=== PATIENT | female | born 1965 | race Caucasian/White ===

== ENCOUNTER 2020-11-14 21:25 | Inpatient (IN) | payer BC, SELFPAY ==
[2020-11-14 22:10] LABS: Absolute Lymphocytes (CBC) 1.4 K/uL (0.7-4.9); Basophils % 0.6 % (0-1.3); Hematocrit 34.9 % (36.0-45.0); Lymphocytes % 14.8 % (15.3-44.8); MPV 7.5 fL (7.6-11.3); Protime INR 1.12; RBC Red Blood Cell Count 3.23 M/uL (3.86-4.86)
[2020-11-14] MEDS ORDERED: ACETAMINOPHEN 325 MG TABLET ONE (22:23)
[2020-11-14] MEDS ORDERED: NA CHLORIDE 0.9% 1,000 ML ONE (22:23)
[2020-11-14 22:36] LABS: ALT/SGPT 42 U/L (12-78); Albumin 3.8 g/dL (3.4-5.0); Alkaline Phosphatase 184 U/L (45-117); BUN Blood Urea Nitrogen 8 mg/dL (7-18); Bicarbonate 20 mmol/L (21-32); Bilirubin Direct 0.2 mg/dL (0-0.2); Bilirubin Total 0.8 mg/dL (0.2-1.0); Glucose Level 166 mg/dL (74-106); NT PRO-BNP 351 pg/mL (<125); Protein, Total 8.7 g/dL (6.4-8.2); Sodium Level 132 mmol/L (136-145); Troponin (Emerg Dept Use Only) < 0.02 ng/mL (0.0-0.045)
[2020-11-14 22:39] LABS: AST/SGOT 128 U/L (15-37); Magnesium 1.6 mg/dL (1.8-2.4); Potassium 3.3 mmol/L (3.5-5.1)
[2020-11-14 22:47] LABS: Blood Morphology Comment NOTED (NOT SEEN); Macrocytosis 1+; Platelet Estimate ADEQ; White Blood Cell Scan OK (OK)
[2020-11-14 23:25] LABS: Urine Blood Trace-intact (Negative); Urine Glucose Negative (Negative); Urine Protein Negative (Negative); Urine Specific Gravity 1.015 (1.005-1.030); Urine pH 6.5 (5.0-7.0)
[2020-11-14 23:42] LABS: Barbiturates NEGATIVE (NEGATIVE); Benzodiazepines NEGATIVE (NEGATIVE); Cocaine NEGATIVE (NEGATIVE); METHAMPHETAM NEGATIVE (NEGATIVE); Methadone NEGATIVE (NEGATIVE); Opiates NEGATIVE (NEGATIVE); Phencyclidine NEGATIVE (NEGATIVE); THC Cannibis POSITIVE (NEGATIVE)
--- NOTE | 2020-11-14 23:44 | ER ---
Nurse's Notes [facility] Name: Lindsay Junior Age: 55 yrs Sex: Female : 1965 Arrival Date: 11/14/2020 Time: 21:28 Bed 14 Private MD: Diagnosis: Other seizures;Fever, unspecified;Other specified sepsis Presentation: 11/14 21:35 Chief complaint: Patient states: seizure-like activity lasting 5 minutes. pt a/ox4 at ak2 this time. Coronavirus screen: Client denies travel out of the [place] in the last 14 days. At this time, the client does not indicate any symptoms associated with coronavirus-19. Ebola Screen: Patient negative for fever greater than or equal to 101.5 degrees Fahrenheit, and additional compatible Ebola Virus Disease symptoms Patient denies exposure to infectious person. Patient denies travel to an Ebola-affected area in the 21 days before illness onset. No symptoms or risks identified at this time. Initial Sepsis Screen: Does the patient meet any 2 criteria? No. Patient's initial sepsis screen is negative. Does the patient have a suspected source of infection? No. Patient's initial sepsis screen is negative. Risk Assessment: Do you want to hurt yourself or someone else? Patient reports no desire to harm self or others. Onset of symptoms was November 14, 2020. 21:35 Method Of Arrival: EMS: [facility] ak2 21:35 Acuity: JENNIFER 3 ak2 Triage Assessment: 21:37 General: Appears in no apparent distress. Behavior is calm, cooperative. Pain: Denies ak2 pain. Neuro: No deficits noted. Historical: - Allergies: 21:37 No Known Allergies; ak2 - Immunization history:: Adult Immunizations up to date. - Social history:: Smoking status: unknown. Screenin:37 Abuse screen: Denies threats or abuse. Denies injuries from another. Nutritional ak2 screening: No deficits noted. Tuberculosis screening: No symptoms or risk factors identified. Fall Risk None identified. Assessment: 21:38 General: Appears in no apparent distress. Neuro: No deficits noted. Cardiovascular: No ak2 deficits noted. Respiratory: No deficits noted. 11/15 00:03 Reassessment: Patient and/or family updated on plan of care and expected duration. Pain ak2 level reassessed. 00:34 General: report called to rn. ak2 Vital Signs: 11/14 21:35 BP 147 / 85; Pulse 119; Resp 20; Temp 100.2; Pulse Ox 100% ; Weight 72.57 kg; Height 5 ak2 ft. 8 in. (172.72 cm); 11/15 00:03 BP 136 / 87; Pulse 89; Resp 18; Temp 98.9(O); Pulse Ox 98% on R/A; ak2 11/14 21:35 Body Mass Index 24.33 (72.57 kg, 172.72 cm) ak2 Shabana Coma Score: 11/14 21:37 Eye Response: spontaneous(4). Verbal Response: oriented(5). Motor Response: obeys ak2 commands(6). Total: 15. ED Course: 21:28 Patient arrived in ED. ag3 21:35 Cuba Escalera is Primary Nurse. ak2 21:37 Triage completed. ak2 21:37 Arm band placed on right wrist. ak2 21:37 Patient has correct armband on for positive identification. Bed in low position. Side ak2 rails up X2. Seizure precautions initiated. 21:37 No provider procedures requiring assistance completed. Inserted saline lock: 20 gauge ak2 in right forearm, using aseptic technique. 21:38 Gurjit Mercado MD is Attending Physician. pkl 22:16 CT Head Brain wo Cont In Process Unspecified. EDMS 22:32 XRAY Chest (1 view) In Process Unspecified. EDMS 22:44 Notified ED physician of a critical lab result(s). lactate 5.1. em 23:35 US Abdomen Limited In Process Unspecified. EDMS 23:42 Roddy Lowery is Hospitalizing Provider. pkl 0704 01:04 Gurjit Mercado MD is Hospitalizing Provider. ak2 Administered Medications: 11/14 22:09 Drug: NS 0.9% 1000 ml Route: IV; Rate: 125 ml/hr; Site: right hand; ak2 22:09 Drug: Tylenol 650 mg Route: PO; ak2 23:34 Drug: K-Dur (potassium chloride) 40 mEq Route: PO; ak2 23:35 Drug: Zosyn (piperacillin-tazobactam) 3.375 grams Route: IVPB; Infused Over: 60 mins; ak2 Site: right forearm; 23:42 Drug: Magnesium Sulfate 1 grams Route: IVPB; Infused Over: 1 hrs; Site: right forearm; ak2 Outcome: 23:43 Decision to Hospitalize by Provider. pkl 11/15 01:02 Admitted to Tele ak2 Condition: good 01:05 Decision to Hospitalize by Provider. ak2 01:05 Patient left the ED. ak2 Signatures: Dispatcher [employer] Gurjit Keller MD MD pkArvind Marshall RN RN Rhoda Rankin Cuba Staley ak2 Corrections: (The following items were deleted from the chart) 11/14 23:35 23:34 Zosyn (piperacillin-tazobactam) 3.375 grams IVPB in right femoral over 60 mins ak2ak2 11/15 00:07 00:03 BP 136 / 87; Pulse 89bpm; Resp 18bpm; Pulse Ox 98% RA; ak2 ak2
--- NOTE | 2020-11-14 23:44 | EDPHYS ---
Physician Documentation [facility] Name: Lindsay Junior Age: 55 yrs Sex: Female : 1965 Arrival Date: 11/14/2020 Time: 21:28 Bed 14 Private MD: ED Physician Gurjit Mercado HPI: 11/14 21:58 This 55 yrs old Female presents to ER via EMS with complaints of Seizure. pkl 21:58 The patient presents after having a single isolated seizure, that lasted 5 minute(s). pkl Character of seizure(s): Loss of consciousness: the patient experienced loss of consciousness, brief, Motor activity: generalized, shaking all over. Seizure onset: just prior to arrival. Historical: - Allergies: 21:37 No Known Allergies; ak2 - Immunization history:: Adult Immunizations up to date. - Social history:: Smoking status: unknown. ROS: 21:58 Eyes: Negative for injury, pain, redness, and discharge, ENT: Negative for injury, pkl pain, and discharge, Neck: Negative for injury, pain, and swelling, Cardiovascular: Negative for chest pain, palpitations, and edema. 21:58 Respiratory: Positive for cough, with no reported sputum. 21:58 Abdomen/GI: Negative for abdominal pain, nausea, vomiting, and diarrhea. 21:58 Back: Negative for acute changes. 21:58 : Negative for urinary symptoms. 21:58 MS/extremity: Negative for acute changes. 21:58 Skin: Negative for rash. 21:58 Neuro: Positive for seizure activity. Exam: 21:58 Head/Face: Normocephalic, atraumatic. Eyes: Pupils equal round and reactive to light, pkl extra-ocular motions intact. Lids and lashes normal. Conjunctiva and sclera are non-icteric and not injected. Cornea within normal limits. Periorbital areas with no swelling, redness, or edema. ENT: Nares patent. No nasal discharge, no septal abnormalities noted. Tympanic membranes are normal and external auditory canals are clear. Oropharynx with no redness, swelling, or masses, exudates, or evidence of obstruction, uvula midline. Mucous membranes moist. Neck: Trachea midline, no thyromegaly or masses palpated, and no cervical lymphadenopathy. Supple, full range of motion without nuchal rigidity, or vertebral point tenderness. No Meningismus. Chest/axilla: Normal chest wall appearance and motion. Nontender with no deformity. No lesions are appreciated. Cardiovascular: Regular rate and rhythm with a normal S1 and S2. No gallops, murmurs, or rubs. Normal PMI, no JVD. No pulse deficits. Respiratory: Lungs have equal breath sounds bilaterally, clear to auscultation and percussion. No rales, rhonchi or wheezes noted. No increased work of breathing, no retractions or nasal flaring. Abdomen/GI: Soft, non-tender, with normal bowel sounds. No distension or tympany. No guarding or rebound. No evidence of tenderness throughout. Back: No spinal tenderness. No costovertebral tenderness. Full range of motion. Skin: Warm, dry with normal turgor. Normal color with no rashes, no lesions, and no evidence of cellulitis. MS/ Extremity: Pulses equal, no cyanosis. Neurovascular intact. Full, normal range of motion. Neuro: Awake and alert, GCS 15, oriented to person, place, time, and situation. Cranial nerves II-XII grossly intact. Motor strength 5/5 in all extremities. Sensory grossly intact. Cerebellar exam normal. Normal gait. Vital Signs: 21:35 BP 147 / 85; Pulse 119; Resp 20; Temp 100.2; Pulse Ox 100% ; Weight 72.57 kg; Height 5 ak2 ft. 8 in. (172.72 cm); 11/15 00:03 BP 136 / 87; Pulse 89; Resp 18; Temp 98.9(O); Pulse Ox 98% on R/A; ak2 11/14 21:35 Body Mass Index 24.33 (72.57 kg, 172.72 cm) ak2 Shabana Coma Score: 11/14 21:37 Eye Response: spontaneous(4). Verbal Response: oriented(5). Motor Response: obeys ak2 commands(6). Total: 15. MDM: 21:38 Patient medically screened. pkl 23:41 Data reviewed: vital signs, nurses notes, lab test result(s), EKG, radiologic studies, pkl CT scan, plain films. ED course: Talked to Tom CUELLAR ) Admit to Dr. Lowery. 11/14 21:56 Order name: Basic Metabolic Panel pkl 11/14 21:56 Order name: CBC with Diff pkl 11/14 21:56 Order name: LFT's pk 11/14 21:56 Order name: Magnesium; Complete Time: 22:49 pk 11/14 21:56 Order name: NT PRO-BNP; Complete Time: 22:49 pk 11/14 21:56 Order name: PT-INR; Complete Time: 22:49 pk 11/14 21:56 Order name: Troponin (emerg Dept Use Only); Complete Time: 22:49 pk 11/14 21:56 Order name: UDS; Complete Time: 23:44 pk 11/14 21:56 Order name: Basic Metabolic Panel; Complete Time: 22:49 EDMS 11/14 21:56 Order name: CBC with Automated Diff; Complete Time: 22:49 EDMS 11/14 21:56 Order name: Liver (Hepatic) Function; Complete Time: 22:49 EDMS 11/14 22:02 Order name: Blood Culture Adult (2) [facility] 11/14 22:02 Order name: Lactate; Complete Time: 22:49 pk 11/14 21:56 Order name: XRAY Chest (1 view) [facility] 11/14 21:56 Order name: CT Head Brain wo Cont [facility] 11/14 22:11 Order name: CBC Smear Scan; Complete Time: 22:49 EDMS 11/14 22:57 Order name: US Abdomen Limited [facility] 11/14 23:25 Order name: Urine Dipstick-Ancillary; Complete Time: 23:34 EDMS 11/14 23:34 Order name: ETOH Level [facility] 11/14 23:53 Order name: SARS-COV-[address] [facility] 11/15 00:05 Order name: Procalcitonin 11/15 00:05 Order name: CRP 11/15 00:05 Order name: B12 ej 11/15 00:05 Order name: Folic Acid,Serum (folate) 11/14 21:56 Order name: EKG; Complete Time: 21:56 [facility] 11/14 21:56 Order name: Cardiac monitoring [facility] 11/14 21:56 Order name: EKG - Nurse/Tech [facility] 11/14 21:56 Order name: IV Saline Lock [facility] 11/14 21:56 Order name: Labs collected and sent [facility] 11/14 21:56 Order name: O2 Per Protocol [facility] 11/14 21:56 Order name: O2 Sat Monitoring pkl 11/15 00:36 Order name: CONS Physician Consult EDMS Administered Medications: 22:09 Drug: NS 0.9% 1000 ml Route: IV; Rate: 125 ml/hr; Site: right hand; ak2 22:09 Drug: Tylenol 650 mg Route: PO; ak2 23:34 Drug: K-Dur (potassium chloride) 40 mEq Route: PO; ak2 23:35 Drug: Zosyn (piperacillin-tazobactam) 3.375 grams Route: IVPB; Infused Over: 60 mins; ak2 Site: right forearm; 23:42 Drug: Magnesium Sulfate 1 grams Route: IVPB; Infused Over: 1 hrs; Site: right forearm; ak2 Disposition Summary: 11/15/20 01:05 Hospitalization Ordered Hospitalization Status: Inpatient Admission(11/15/20 01:05) ak2 Provider: Gurjit Mercado(11/15/20 01:05) ak2 Location: Telemetry/MedSurg (Inpatient)(11/15/20 01:05) ak2 Condition: Stable(11/15/20 01:05) ak2 Bed/Room Type: Standard(11/15/20 01:05) ak2 Room Assignment: (11/15/20 01:05) ak2 Diagnosis - Other seizures ak2 - Fever, unspecified ak2 - Other specified sepsis ak2 Forms: - Medication Reconciliation Form ak2 - SBAR form ak2 Signatures: Dispatcher [employer] EDMS Aditi Scott RN RN mw Lam, Pin, MD MD pkl Cuba Escalera ak2 Corrections: (The following items were deleted from the chart) 22:59 22:23 CORONAVIRUS+MR.LAB.BRZ ordered. EDMT EDMS 11/15 00:12 0703 23:43 pkl mw 11/15 01:02 11/14 23:43 Inpatient Admission pkl ak2 11/15 01:02 11/14 23:43 Roddy Lowery pkl ak2 11/15 01:02 11/14 23:43 Telemetry/MedSurg (Inpatient) pkl ak2 11/15 01:02 11/14 23:43 Stable pkl ak2 11/15 01:02 11/14 23:43 new pkl ak2 11/15 01:02 11/14 23:43 have improved [facility] ak2 11/15 01:02 11/14 23:43 Standard [facility] 11/15 01:02 11/14 23:43 Seizures. Fever. R/O Sepsis [facility] 11/15 01:02 00:12 221 ak2
[2020-11-14] MEDS ORDERED: POTASSIUM CL SA 10 MEQ TAB PO ONE (23:51)
[2020-11-14] MEDS ORDERED: NA CHLORIDE 0.9% 250 ML ONE (23:51)
[2020-11-14] MEDS ORDERED: PIPERACIL/TAZO 3.375 GM VIAL IV ONE (23:51)
[2020-11-14] MEDS ORDERED: MAGNESIUM SULFATE 1 gm IVPB 1 GM/100 ML BAG IV ONE (23:58)
[2020-11-15] MEDS ORDERED: FOLIC ACID 1 MG, MULTIVITAMINS INJ 10 ML, THIAMINE HCL 100 MG in NA CHLORIDE 0.9% 1,000 ML IV ONE (00:50)
[2020-11-15] MEDS ORDERED: ACETAMINOPHEN 500 MG TAB PO PRN (00:50)
[2020-11-15] MEDS ORDERED: ALBUTEROL 2.5 MG/3 ML NEB SOL NEB PRN (00:50)
[2020-11-15] MEDS ORDERED: ONDANSETRON 4 MG/2 ML VIAL IV PRN (00:50)
[2020-11-15] MEDS ORDERED: LORazepam 2 MG/ML VIAL IV PRN (00:50)
[2020-11-15] MEDS ORDERED: ZOLPIDEM TARTRATE 5 MG TABLET PO PRN (00:50)
[2020-11-15] MEDS ORDERED: HYDRALAZINE HCL 20 MG/ML VIAL IV PRN (00:50)
--- NOTE | 2020-11-15 01:20 | P.HP ---
Certification for Inpatient Patient admitted to: Inpatient With expected LOS: <2 Midnights Patient will require the following post-hospital care: None Practitioner: I am a practitioner with admitting privileges, knowledge of patient current condition, hospital course, and medical plan of care. Services: Services provided to patient in accordance with Admission requirements found in Title 42 Section 412.3 of the Code of Federal Regulations Patient History Date of Service: 11/15/20 Reason for admission: seizure History of Present Illness: Ms. Junior is a 55 yo F with HTN, HLD and GERD here today for seizure like activity. She said she was watching TV when she started to feel 'funny', so she laid her head down on her arm rest. She says she knew her words weren't coming out correctly and the next thing she remembers is waking up with the EMT there. She said when she woke she felt 'out of it' and her muscles were aching. Her friends witnessed the event. They said she was shaking, her body was rigid and her jaw was locked. She was gurgling at the mouth and her lips turned blue. She could not talk at first, but when she did she didn't make sense. The shaking lasted 4-5 minutes, and the entire episode lasted 20 minutes. At bedside, she states she now feels back to normal, just with muscle pain everywhere. Denies neck pain. She says on and again 3 months ago, she had episodes where she fell, loss consciousness, and woke up on the floor and had to call for help. She doesn't remember anything else from these events. In 2019, she lost her son, her father, her best friend, and her job and health insurance. She also had COVID, and has had ongoing SOB since then, symptomatic relief with albuterol. She drinks 2-3 glasses of wine daily. Allergies No Known Allergies Allergy (Unverified 11/15/20 00:50) - Past Medical/Surgical History Diabetic: No -: HTN -: HLD -: GERD -: alcohol abuse Past Surgical History: Patient denies surgical history Psychosocial/ Personal History: in 2019, lost son, father, best friend, job and health insurance. also had covid. - Family History Father -: Heart disease, Stroke - Social History Smoking Status: Never smoker Alcohol use: Yes CD- Drugs: Yes Caffeine use: No Place of Residence: Home Review of Systems 10-point ROS is otherwise unremarkable Respiratory: Shortness of Breath Musculoskeletal: Shoulder Pain, Arm Pain, Back Pain, Leg Pain Integumentary: Other (laceration to tongue) Neurological: Seizures Physical Examination - Physical Exam General: Alert, In no apparent distress, Oriented x3, Cooperative HEENT: Atraumatic, PERRLA, Mucous membr. moist/pink, EOMI, Sclerae nonicteric Neck: Supple, 2+ carotid pulse no bruit, No LAD, Without JVD or thyroid abnormality Respiratory: Clear to auscultation bilaterally, Normal air movement Cardiovascular: No edema, Regular rate/rhythm, Normal S1 S2, No gallops, No rubs, No murmurs Capillary refill: <2 Seconds Gastrointestinal: Normal bowel sounds, No tenderness Musculoskeletal: No clubbing, No swelling, No contractures, No erythema, No tenderness, No warmth Integumentary: No rashes, No breakdown, No significant lesion, No ten derness/swelling, No erythema, No warmth, No cyanosis, Other (laceration to tongue) Neurological: Normal gait, Normal speech, Normal strength at 5/5 x4 extr, Normal tone, Sensation intact, Cranial nerves 3-12 intact, Normal affect, Other Lymphatics: No axilla or inguinal lymphadenopathy - Studies Laboratory Data (last 24 hrs) 11/14/20 22:00: PT 12.9 H, INR 1.12 11/14/20 22:00: WBC 9.40, Hgb 12.1, Hct 34.9 L, Plt Count 230 11/14/20 22:00: Sodium 132 L, Potassium 3.3 L, BUN 8, Creatinine 1.01, Glucose 166 H, Magnesium 1.6 L, Total Bilirubin 0.8, AST 128 H, ALT 42, Alkaline Phosphatase 184 H Assessment and Plan - Problems (Diagnosis) (1) Seizure Current Visit: Yes Status: Acute (2) HTN (hypertension) Current Visit: Yes Status: Chronic Qualifiers: Hypertension type: primary hypertension Qualified Code(s): I10 - Essential (primary) hypertension (3) HLD (hyperlipidemia) Current Visit: Yes Status: Chronic Qualifiers: Hyperlipidemia type: unspecified Qualified Code(s): E78.5 - Hyperlipidemia, unspecified (4) GERD (gastroesophageal reflux disease) Current Visit: Yes Status: Chronic Qualifiers: Esophagitis presence: without esophagitis Qualified Code(s): K21.9 - Gastro-esophageal reflux disease without esophagitis (5) Alcohol use Current Visit: Yes Status: Chronic - Plan neurology consulted MRI and EEG ordered continue with IVF hydration seizure precautions and PRN ativan alcohol withdrawal assessments q5hr CK, lactate, CRP, procal, B12, folate pending monitor BG levels pain management as needed O2 and breathing treatments as needed BP stable, continue to monitor potassium and magnesium replacement protocol reconcile and continue home medications DVT ppx Discharge Plan: Home Plan to discharge in: 48 Hours - Advance Directives Does patient have a Living Will: No Does patient have a Durable POA for Healthcare: No - Code Status/Comfort Care Code Status Assessed: Yes (full code) Critical Care: No Time Spent Managing Pts Care (In Minutes): 70
[2020-11-15 01:53] VITALS: BMI 29.7
[2020-11-15] MEDS ORDERED: NA CHLORIDE 0.9% 1,000 ML ONE (01:53)
[2020-11-15] MEDS ORDERED: THIAMINE 200 MG/2 ML INJ ONE (01:55)
[2020-11-15 01:56] LABS: Thyroid Stimulating Hormone 2.5 uIU/mL (0.360-3.740)
[2020-11-15] MEDS ORDERED: FOLIC ACID 5 MG/ML VIAL ONE ×2 (02:12→02:23)
[2020-11-15] MEDS ORDERED: MULTIVITAMINS 10 ML VIAL (INJ) IV ONE (02:22)
[2020-11-15 02:31] LABS: C-Reactive Protein 35.2 mg/L (<3.00)
[2020-11-15] MEDS: MORPHINE 2 MG/ML SYR IV PRN ×2 (02:44→11:24)
[2020-11-15] MEDS ORDERED: NA CHLORIDE 0.9% 1,000 ML IV SCH (05:00)
[2020-11-15 06:03] LABS: Absolute Lymphocytes (CBC) 0.9 K/uL (0.7-4.9); Basophils % 0.6 % (0-1.3); Hematocrit 31.3 % (36.0-45.0); Lymphocytes % 10.6 % (15.3-44.8); MPV 7.7 fL (7.6-11.3)
[2020-11-15 06:07] VITALS: O2SAT 96
[2020-11-15 06:15] LABS: Albumin 3.2 g/dL (3.4-5.0); Bilirubin Total 0.8 mg/dL (0.2-1.0); Magnesium 1.8 mg/dL (1.8-2.4); Phosphorus 1.6 mg/dL (2.5-4.9); Potassium 3.5 mmol/L (3.5-5.1); Protein, Total 7.3 g/dL (6.4-8.2)
[2020-11-15] MEDS ORDERED: INSULIN -REGULAR HUMAN 50 UNIT/0.5 ML ML SQ SCH (07:30)
[2020-11-15] MEDS ORDERED: MAGNESIUM SULFATE 1 gm IVPB 1 GM/100 ML BAG IV ONE (07:54)
[2020-11-15] MEDS ORDERED: POTASS/SODIUM PHOSPHATE 1 PKT POWD.PACK PO ONE (09:00)
--- NOTE | 2020-11-15 09:16 | RAD REPORT ---
EXAM DESCRIPTION: US - Abdomen Exam Limited - 11/14/2020 11:35 pm CLINICAL HISTORY: Elevated LFT Preliminary findings provided at the time of the study. COMPARISON: No comparisons FINDINGS: No gallstones, sludge or other abnormalities within the gallbladder lumen. There is no wal l thickening or pericholecystic fluid. No common duct stone or biliary tree dilatation identified. IMPRESSION: Normal gallbladder and biliary tree ultrasound.
--- NOTE | 2020-11-15 09:17 | RAD REPORT ---
EXAM DESCRIPTION: RAD - Chest Single View - 11/14/2020 10:32 pm CLINICAL HISTORY: seizures COMPARISON: None TECHNIQUE: AP portable chest image was obtained 11/14/2020 10:32 pm . FINDINGS: Lungs are clear. Heart and vasculature are normal. No measurable pleural effusion and no p neumothorax. No acute bony abnormality seen. No acute aortic findings suspected. IMPRESSION: No acute cardiopulmonary process.
[2020-11-15 09:54] VITALS: TEMP 98
[2020-11-15] MEDS: LOSARTAN/HCTZ 50-12.5 PO SCH ×2 (11:24→11:33)
[2020-11-15] MEDS: PANTOPRAZOLE 40MG TABLET PO SCH ×2 (11:24→11:33)
--- NOTE | 2020-11-15 12:48 | P.DS ---
Admission Date: 11/15/20 Discharge Date: 11/15/20 Disposition: ROUTINE DISCHARGE Discharge Condition: FAIR Reason for Admission: seizure - Problems (1) Muscle ache Current Visit: Yes Status: Acute (2) Seizure Current Visit: Yes Status: Acute (3) Alcohol use Current Visit: Yes Status: Chronic (4) GERD (gastroesophageal reflux disease) Current Visit: Yes Status: Chronic Qualifiers: Esophagitis presence: without esophagitis Qualified Code(s): K21.9 - Gastro-esophageal reflux disease without esophagitis (5) HTN (hypertension) Current Visit: Yes Status: Chronic Qualifiers: Hypertension type: primary hypertension Qualified Code(s): I10 - Essential (primary) hypertension Brief History of Present Illness: 55 yo F with HTN, HLD and GERD presented to the emergency department due to a seizure activity which occurred while she was watching TV. The event was witnessed by her friends. She actually woke up when EMS got there. The shaking lasted 4-5 minutes, and the entire episode lasted 20 minutes. She was awake, alert and oriented on arrival to the ED and complaining of muscle aches all over. Head CT negative, UA no evidence of UTI. Patient stated she drinks wine every day and had Vodka on the day she had seizures. Patient hospitalized for further management. Hospital Course: Patient admitted to the medical floor and treated supportively with IV hydration-Banana Bag. She was placed on CIWA protocol for pending alcohol withdrawal. No more seizure episode since hospitalization. Case discussed with neurology. Her seizures likely related to alcohol. It is very much possible alcohol reduced her threshold for seizures and was a trigger for the seizures. Dr. Hernandez recommended EEG as an outpatient and no antiepileptics yet until EEG results. Patient requests to be discharged so she can follow with her providers in [place]. Patient informed to follow with her PCP for arrangement for EEG. She has also been informed to avoid alcohol. Vital Signs/Physical Exam: Temp Pulse Resp BP Pulse Ox 98.0 F 92 H 16 178/101 H 95 11/15/20 08:00 11/15/20 08:00 11/15/20 08:00 11/15/20 08:00 11/15/20 08:00 General: Alert, In no apparent distress, Oriented x3 HEENT: Normocephalic, PERRLA, Mucous membr. moist/pink, EOMI, Sclerae nonicteric Neck: Supple, JVD not distended Respiratory: Clear to auscultation bilaterally, Normal air movement Cardiovascular: No edema, Regular rate/rhythm, Normal S1 S2 Capillary refill: <2 Seconds Gastrointestinal: Normal bowel sounds, Soft and benign, Non-distended, No tenderness Musculoskeletal: No swelling, No tenderness Integumentary: No rashes Neurological: Normal strength at 5/5 x4 extr, Cranial nerves 3-12 intact Laboratory Data at Discharge: WBC 8.20 K/uL (4.3-10.9) 11/15/20 05:27 Hgb 10.7 g/dL (12.0-15.0) L 11/15/20 05:27 Hct 31.3 % (36.0-45.0) L 11/15/20 05:27 Plt Count 193 K/uL (152-406) 11/15/20 05:27 PT 12.9 SECONDS (9.5-12.5) H 11/14/20 22:00 INR 1.12 11/14/20 22:00 Sodium 139 mmol/L (136-145) 11/15/20 05:27 Potassium 3.5 mmol/L (3.5-5.1) 11/15/20 05:27 BUN 6 mg/dL (7-18) L 11/15/20 05:27 Creatinine 0.68 mg/dL (0.55-1.3) 11/15/20 05:27 Glucose 131 mg/dL (74-106) H 11/15/20 05:27 Phosphorus 1.6 mg/dL (2.5-4.9) L 11/15/20 05:27 Magnesium 1.8 mg/dL (1.8-2.4) 11/15/20 05:27 Total Bilirubin 0.8 mg/dL (0.2-1.0) 11/15/20 05:27 AST 121 U/L (15-37) H 11/15/20 05:27 ALT 38 U/L (12-78) 11/15/20 05:27 Alkaline Phosphatase 148 U/L (45-117) H 11/15/20 05:27 Triglycerides 73 mg/dL (<150) 11/15/20 05:27 Cholesterol 138 mg/dL (<200) 11/15/20 05:27 HDL Cholesterol 68 mg/dL (40-60) H 11/15/20 05:27 Cholesterol/HDL Ratio 2.03 11/15/20 05:27 Home Medications: Cyclobenzaprine HCl [Flexeril] 5 mg PO TID PRN #20 tablet 11/15/20 Folic Acid 1 mg PO DAILY #30 tablet 11/15/20 Multivitamin [Multiple Vitamins] 1 each PO DAILY #30 tablet 11/15/20 Thiamine HCl [Vitamin B-1] 100 mg PO DAILY #30 tablet 11/15/20 New Medications: Cyclobenzaprine HCl [Flexeril] 5 mg PO TID PRN #20 tablet PRN Reason: Muscle Spasms Folic Acid 1 mg PO DAILY #30 tablet Multivitamin [Multiple Vitamins] 1 each PO DAILY #30 tablet Thiamine HCl [Vitamin B-1] 100 mg PO DAILY #30 tablet Physician Discharge Instructions: Alcohol lower seizure threshold for seizures then you can have more seizure events when you drink alcohol. I recommend you avoid drink alcohol. Diet: AHA Activity: Ad brayden Followup: KALLIE ARREGUIN [Primary Care Provider] - 1 Week Time spent managing pt's care (in minutes): 35
--- NOTE | 2020-11-15 13:49 | RAD REPORT ---
EXAM DESCRIPTION: CT - Head Brain Wo Cont - 11/15/2020 6:44 am CLINICAL HISTORY: SEIZURE TECHNIQUE: Contiguous axial CT images obtained through the brain without IV contrast. Coronal and sa gittal reformatted images were provided. This exam was performed according to our departmental dose-optimization program, which includes autom ated exposure control, adjustment of the mA and/or kV according to patient size and/or use of iterati ve reconstruction technique. COMPARISON: None available for comparison FINDINGS: Brain: Mild bilateral periventricular and subcortical white matter hypodensity which is no nspecific and can be seen in the clinical setting of chronic microvascular angiopathy. No focal mass effect. Harden-white matter differentiation is within normal limits. No hemorrhage. Ventricles: No ventriculomegaly or midline shift. Extra-axial spaces: No extra-axial collection or hemorrhage. Paranasal sinuses and mastoid air cells: Left posterior ethmoid sinus mucous retention cyst/polyp. Vessels: There is atherosclerotic disease of the internal carotid arteries bilaterally. Bones: Unremarkable Soft tissues: Unremarkable IMPRESSION: No acute hemorrhage, focal mass or large territory infarction. Electronically signed by: Poncho Sawant MD 11/14/2020 10:27 PM CDT Due to temporary technical issues with the PACS/Fluency reporting system, reports are being signed by the in house radiologists without review as a courtesy to insure prompt reporting. The interpreting radiologist is fully responsible for the content of the report.
[2020-11-15 14:27] VITALS: BP 165/83
--- NOTE | 2020-11-17 16:15 | EKG ---
Test Date: 2020-11-14 Test Time: 21:25:33 Equipment Validation Specialist: MEASUREMENT RESULTS: Intervals: Rate: 117 NE: 144 QRSD: 70 QT: 358 QTc: 499 [place]: P: 27 NE: 144 QRS: 56 T: 7 INTERPRETIVE STATEMENTS: Sinus tachycardia with premature atrial complexes T wave abnormality, consider inferior ischemia Abnormal ECG No previous ECG available for comparison Electronically Signed On 11-17-20 16:09:07 CDT by Hardeep Lee
== END 2020-11-15 16:00 | disposition home or self-care (01) | DRG 101 ==
LOC: ER 21:25 → 2ND 11-15 00:42
PROVIDERS: ADMIT Internal Medicine; ATTEND Internal Medicine
DX: R56.9 Unspecified convulsions (principal); M79.10 Myalgia, unspecified site; E78.5 Hyperlipidemia, unspecified; K21.9 Gastro-esophageal reflux disease without esophagitis; F10.10 Alcohol abuse, uncomplicated
CPT/HCPCS: 36415; 70450; 71045; 76705; 80048; 80053; 80061; 80076; 80307; 80320; 81003; 82550; 82607; 82746; 82947; 83605; 83735; 83880; 84100; 84145; 84439; 84443; 84484; 85025; 85610; 86140; 87040; 93005; 94760; 96374; 96375; 97116; 97161; 97530; 99285; J2270; J2543; J3411; J3475; J7030; J7050; U0003